=== PATIENT | male | born 1940 | race African-American/Black ===

== ENCOUNTER 2016-08-02 20:03 | Inpatient (IN) | payer MEDICARE, OTHER ==
[~2016-08-02] VITALS: Ht 180.3 cm; Wt 99.0 kg
[~2016-08-02 20:03] MED LIST: ATOR20TA OR; CITA-30 OR
[2016-08-02] MEDS ORDERED: diphenhdrAMINE HCL 25 MG CAP PO ONE (20:15)
[2016-08-02] MEDS ORDERED: DEXAMETHASONE SOD PHOS 10MG/1ML VIAL INJ IV ONE (22:00)
[2016-08-02] MEDS ORDERED: FAMOTIDINE 20 MG TAB PO ONE (22:00)
[2016-08-02] MEDS ORDERED: SODIUM CHLORIDE 0.9% 1,000 ML IV ONE (22:00)
[2016-08-02] MEDS ORDERED: FAMOTIDINE (10MG/ML) 2ML VL IV ONE ×2 (22:06→22:30)
[2016-08-03] MEDS ORDERED: HYDROcodone-ACET 5/325MG TAB PO PRN (03:15)
[2016-08-03] MEDS ORDERED: ACETAMINOPHEN 325 MG TAB PO PRN (03:15)
[2016-08-03] MEDS ORDERED: cloNIDine HCL 0.1 MG TAB PO PRN (03:15)
[2016-08-03] MEDS ORDERED: TEMAZEPAM 15 MG CAP PO PRN (03:15)
[2016-08-03] MEDS ORDERED: ONDANSETRON HCL 4 MG/2 ML VIAL IV PRN (03:15)
[2016-08-03] MEDS ORDERED: LORATADINE 10 MG TAB PO ONE (03:15)
[2016-08-03] MEDS ORDERED: diphenhdrAMINE HCL 50 MG/1 ML VL IV ONE (03:15)
[2016-08-03] MEDS: SODIUM CHLORIDE 0.9% 1,000 ML IV SCH ×2 (03:29→17:11)
[2016-08-03 03:48] LABS: Basophils # (auto) 0.1 uL; Eosinophils # (auto) 0 uL; Hematocrit 40.5 % (41.0-53.0); Hemoglobin 12.9 g/dL (13.5-17.5); Lymphocytes # (auto) 0.4 uL; Lymphocytes % (auto) 4.2 % (10.0-50.0); Mean Corpuscular Hemoglobin 29.9 pg (28.0-32.0); Mean Corpuscular Hgb Conc. 31.9 g/dL (32.0-36.0); Mean Corpuscular Volume 93.8 fL (80.0-100.0); Mean Platelet Volume 8.6 fL (7.4-10.4); Monocytes # (auto) 0 uL; Monocytes % (auto) 0.5 % (0.0-12.0); Neutrophils # (auto) 8.2 uL; Neutrophils % (auto) 94.3 % (37.0-80.0); Platelet Count (auto) 220 10^3/uL (140-450); White Blood Cell 8.7 10^3/uL (4.4-10.8)
[2016-08-03 03:54] LABS: Albumin 3.6 g/dL (3.4-5.0); Calcium 8.5 mg/dL (8.5-10.1); Potassium 4.7 mmol/L (3.5-5.1)
[2016-08-03 03:57] LABS: Bilirubin, Total 0.6 mg/dL (0.2-1.0); Total Protein 7.5 g/dL (6.4-8.2)
[2016-08-03 05:00] VITALS: BP 136/69
[2016-08-03 08:17] VITALS: BP 112/70
[2016-08-03] MEDS ORDERED: LORATADINE 10 MG TAB PO SCH (10:00)
[2016-08-03] MEDS ORDERED: ENOXAPARIN SOD 30 MG/0.3 ML SYRINGE SC SCH (10:00)
[2016-08-03 10:20] LABS: Urine Color Brown (Yellow); Urine Glucose Normal (Normal); Urine Ketone TRACE (Negative); Urine Nitrite Negative (Negative); Urine RBC 23 /hpf (0 - 3); Urine Squamous Epithelial Cell FEW /hpf (<5); Urine WBC Clumps PRESENT /hpf (None Seen)
[2016-08-03 10:22] LABS: Urine Blood 2+ /uL (Negative)
[2016-08-03] MEDS: PANTOPRAZOLE 40 MG TAB PO SCH (10:22)
[2016-08-03] MEDS: predniSONE 5 MG TAB PO SCH (10:22)
[2016-08-03] MEDS: HCTZ 25 MG TAB PO SCH (10:22)
[2016-08-03] MEDS: ENOXAPARIN SOD 40 MG/0.4 ML SYRINGE SC SCH (10:23)
[2016-08-03 10:44] LABS: Urine Bilirubin Negative (Negative)
[2016-08-03] MEDS ORDERED: PRE1T PO (12:13)
[2016-08-03] MEDS ORDERED: LISI2.5T47 PO (12:13)
[2016-08-03 12:52] VITALS: BP 143/80
[2016-08-03 17:00] VITALS: BP 130/71
[2016-08-03 22:00] VITALS: BP 124/67
[2016-08-03] MEDS ORDERED: ATORVASTATIN 20 MG TAB PO SCH (22:00)
[2016-08-04 05:30] VITALS: BP 130/64
[2016-08-04] MEDS: SODIUM CHLORIDE 0.9% 1,000 ML IV SCH (07:37)
[2016-08-04 09:00] VITALS: BP 124/65
[2016-08-04] MEDS: predniSONE 5 MG TAB PO SCH (09:11)
[2016-08-04] MEDS: ENOXAPARIN SOD 40 MG/0.4 ML SYRINGE SC SCH (09:12)
[2016-08-04] MEDS: HCTZ 25 MG TAB PO SCH (09:12)
[2016-08-04] MEDS: PANTOPRAZOLE 40 MG TAB PO SCH (09:12)
[2016-08-04] MEDS ORDERED: LORATADINE 10 MG TAB PO SCH (10:00)
[2016-08-04 10:18] VITALS: BP 124/65
== END 2016-08-04 11:20 | disposition home or self-care (01) | DRG 916 ==
LOC: ER 20:04 → OVERFLOW 20:05 → WEST WING 08-03 04:22
PROVIDERS: ADMIT Nurse Practitioner; ATTEND Internal Medicine Pulmonary Disease
DX: T78.3XXA Angioneurotic edema, initial encounter (principal); E78.5 Hyperlipidemia, unspecified; I10 Essential (primary) hypertension; E66.9 Obesity, unspecified; Z68.30 Body mass index [BMI] 30.0-30.9, adult; Z88.8 Allergy status to other drugs, medicaments and biological substances
CPT/HCPCS: 36415; 80053; 81001; 85025; 96361; 96374; 96375; J1100; J3490